=== PATIENT | male | born 1945 | race Caucasian/White ===

== ENCOUNTER 2023-07-18 08:37 | Emergency (ER) | payer MEDICARE, SELFPAY ==
[2023-07-18 08:39] VITALS: BP 134/105
[2023-07-18] MEDS: TYLENOL 1000 MG PO (11:09)
[2023-07-18 11:14] VITALS: BP 156/80
[2023-07-18] MEDS: CITROMA 300 ML PO (11:42)
--- NOTE | 2023-07-18 11:48 | ED.GENMED ---
History of Present Illness
General
Chief Complaint: Fall
Source: patient and spouse
Exam Limitations: none
Time Seen by Provider: 07/18/23 09:13
Travel History
Have you had any contact with someone who has COVID-19?: No
Do you have any symptoms of coronavirus? Fever > 100 degrees, chills, cough, shortness of breath, sore throat, loss of taste or smell, muscle aches, or headache?: No
History of Present Illness
History of Present Illness:
78-year-old male who fell of a tractor on Sunday. Patient reports he has had persistent back spasms on the right side. He sort of flung himself forward and landed on his right flank area. Denies shortness of breath but does admit the pain when
he takes a deep breath. No head injury. No neck pain. No midline back pain. On my exam pain is somewhat controlled mild but states that it 'spasms'. Patient and spouse also report constipation. In addition the patient has had poor sensation
below his knees that he attributes to his bilateral knee surgeries. He was seen and evaluated by orthopedics for this.
Past History
Past History
ED Past Medical History: GERD and Other (diverticulitis, Griffin's esophagus, diverticulitis, sciatica, prostate cancer)
ED Past Surgical History: None
Social History
Tobacco: Non-smoker
Living: with family
Phy Exam
Physical Exam
Physical Exam:
CONSTITUTIONAL Patient alert and oriented to person, place and time. Well-appearing. Vital signs reviewed.
HEAD atraumatic, normocephalic.
EYES eyelids normal to inspection, Pupils equally round and reactive to light, Extraocular muscles intact, Conjunctiva normal, Sclera normal.
NECK normal range of motion, Trachea midline, no jugular venous distention.
RESPIRATORY CHEST No respiratory distress noted, Chest expansion equal, Bilateral breath sounds clear.
ABDOMEN abdomen nontender, Bowel sounds normal. No distention.
BACK old midline lumbar scar. mild R posterior Rib tenderness, small healing bruise to mid R flank. no midline lumber TTP
UPPER EXTREMITY range of motion normal, Motor strength normal, no cyanosis, no edema.
LOWER EXTREMITY range of motion normal, Motor strength normal, no cyanosis, bilateral edema. Normal DP pulses bilaterally
NEURO Speech normal, No focal motor deficits, Chandler coma scale 15, Memory normal, Cranial Nerves intact to screening exam.
SKIN skin warm, dry, and normal in color.
PSYCHIATRIC patient oriented to person place and time, Normal affect.
Course
Orders/Labs/Results
Orders:
Orders
07/18/23 09:27
Acetaminophen [Tylenol] 1,000 mg PO NOW STA
07/18/23 09:28
Lumbar Spine, 2 or 3 View [CR Lumbar Spine 2 Or 3 Views] Urgent
Comment:
Reason For Exam: fall
Ribs, Right 3 View W/PA Chest [CR Ribs-right 3 Vw W/pa Chest*] Urgent
Comment:
Reason For Exam: fall
07/18/23 11:34
Magnesium Citrate [Citroma] 300 ml PO ONCE ONE
Vital Signs
Initial and Last Documented VS:
Initial Vital Signs
Temp Pulse Resp BP Pulse Ox
98.1 F 81 16 134/105 98
07/18/23 08:39 07/18/23 08:39 07/18/23 08:39 07/18/23 08:39 07/18/23 08:39
Last Documented Vital Signs
Temp Pulse Resp BP Pulse Ox
98.1 F 80 20 156/80 98
07/18/23 08:39 07/18/23 11:14 07/18/23 11:14 07/18/23 11:14 07/18/23 11:14
MDM/Problems Addressed
MDM/Problems Addressed:
Fall, rib contusion, back injury, muscle spasms
*Radiology
Radiology exam reviewed: preliminary read by ED provider (No obvious pneumothorax) and radiology read reviewed
*Pulse Oximetry
Patient hypoxic: no
*Critical Care Note
Total Time (30-74mins, 75-104mins- exclusive of procedures): Not Applicable
Data Reviewed
Source: patient and spouse
Prescriptions/Medications Considered But Not Given:
Consider narcotic pain medications the patient reports some constipation and does not want to pursue that at this time
Patient Management
Escalation/DeEscalation of care consider admission/obs:
Normal bilateral pulses. Does have a small amount of edema in the lower extremities. Right flank injury. No obvious hematuria to consider kidney injury. Will treat with muscle laxation and laxatives. Recommended Tylenol for pain. Okay for
discharge
ED Attending Note
-
Portions of this chart may have been created with voice recognition software.� Occasional wrong word or��sound alike� substitutions may have occurred due to the inherent limitations of voice recognition software.
Discharge Plan
Departure
Patient Disposition: Home (Routine Discharge)
Date of Disposition: 07/18/23
Time of Disposition: 11:58
Patient with high blood pressure during this ER visit?: Yes
Discharge Problem:
Rib injury
Instructions: Contusion (DC), Rib Fracture or Bruised Rib ED, BLOOD PRESSURE
Prescriptions:
No Action
omeprazole 20 MG tablet,delayed release (DR/EC)
20 mg PO DAILY
ascorbic acid (vitamin C) [Vitamin C] 1,000 MG tablet
1,000 mg PO DAILY
cyanocobalamin (vitamin B-12) 1,000 MCG tablet
1,000 mcg PO DAILY
folic acid 0.4 MG tablet
0.4 mg PO DAILY
multivitamin with folic acid [Tab-A-Mina] 1 TABLET tablet
1 tab PO DAILY
Calcium 1,500 MG Tab
1,500 mg PO DAILY
Vitamin D3: 50 MCG Tab
125 mcg PO DAILY
mupirocin 1 APPLIC ointment
1 applic topical BID Qty: 1 0RF
Patient Comments:
started 3 days ago- pt took a dose 05:00 am on 09/06/20
amlodipine 5 MG tablet
2.5 mg PO HS Qty: 60 0RF
Patient Comments:
pt has not taken Norvasc 'in about 4 days' per pt
Rx Instructions:
1/2 tab (2.5mg) at hs--hold systolic blood pressure <130
aspirin 325 MG tablet
325 mg PO DAILY 0RF
docusate sodium 100 MG capsule
100 mg PO BID 0RF
meloxicam 15 MG tablet
15 mg PO DAILY Qty: 30 1RF
Rx Instructions:
TAKE WITH FOOD
DO NOT TAKE WITHIN 2 HOURS OF ASPIRIN
acetaminophen-codeine 1 TABLET tablet
1 tab PO Q6HPRN PRN (Reason: moderate-severe pain) Qty: 30 0RF
Rx Instructions:
Dx TKA
ongoing therapy
sennosides [senna] 1 TABLET tablet
1 tab PO BID Qty: 1 0RF
Rx Instructions:
increase to 2 tabs bid if no BM
acetaminophen [Tylenol Extra Strength] 500 MG tablet
1,000 mg PO TID Qty: 1 0RF
diazepam 2 MG tablet
2 mg PO TIDPRN PRN (Reason: spasm) Qty: 20 0RF
Rx Instructions:
wean off
cephalexin 500 MG capsule
500 mg PO BID Qty: 14 0RF
Referrals:
Estela Lam MD [Family Provider] -
Activity Restrictions/Additional Instructions:
Please use incentive spirometer 10 times per hour while awake. Please rest. Return immediately for worsening pain, difficulty breathing, urinating blood or any other concerns. Please see your doctor in the next 3 to 5 days for follow-up and
reevaluation.
Interventions
Interventions:
*Risk Screen - Suicide Last Done: 07/18/23 11:15
*General Assessment Last Done: 07/18/23 11:15
*Neglect/Abuse Screening Last Done: 07/18/23 11:15
*ED COVID-19 Vaccine History Last Done: 07/18/23 08:39
ED-Musculoskeletal Assessment Last Done: 07/18/23 11:15
ED- Neurological Assessment Last Done: 07/18/23 11:15
ED-Skin Assessment Last Done: 07/18/23 11:15
== END 2023-07-18 12:10 | disposition home or self-care (01) ==
LOC: EMR 08:37
PROVIDERS: EMERGENCY PHYSICIAN Emergency Medicine; FAMILY PHYSICIAN Family Medicine
DX: S20.219A Contusion of unspecified front wall of thorax, initial encounter (principal); W17.89XA Other fall from one level to another, initial encounter; K59.00 Constipation, unspecified; R03.0 Elevated blood-pressure reading, without diagnosis of hypertension
CPT/HCPCS: 99283; 71101; 72100

== ENCOUNTER → 2024-01-01 13:22 | Outpatient (REF) | payer MEDICARE, SELFPAY ==
[2024-01-01 17:07] LABS: PSA, Total - Diagnostic < 0.06 ng/ml (0.0-4.0)
== END ==
LOC: REG 13:22
PROVIDERS: ATTENDING PHYSICIAN Specialist; FAMILY PHYSICIAN Family Medicine
DX: C61 Malignant neoplasm of prostate (principal)
CPT/HCPCS: 36415; 84153

== ENCOUNTER → 2024-04-21 11:24 | Outpatient (REF) | payer MEDICARE, SELFPAY ==
[2024-04-21 12:49] LABS: ALT (SGPT) 15 U/L (0-50); AST (SGOT) 26 U/L (17-59); Albumin 4.2 g/dl (3.5-5.0); Alkaline Phosphatase 69 U/L (38-126); Blood Urea Nitrogen 18 mg/dl (9-20); Calcium 9.6 mg/dl (8.4-10.2); Carbon Dioxide 30 mmol/L (22-30); Chloride 100 mmol/L (98-107); Glucose 100 mg/dl (70-99); HDL Cholesterol 70 mg/dl; LDL Cholesterol, Calculated 138 mg/dl; Sodium 139 mmol/L (135-145); Total Bilirubin 1.3 mg/dl (0.2-1.3); Total Cholesterol 230 mg/dl (50-199); Total Protein 7.6 g/dl (6.3-8.2); Triglyceride 110 mg/dl (10-149); Very Low Density Lipoprotein 22 mg/dl (0-30); eGFR > 60.00
[2024-04-21 13:27] LABS: TSH Reflex To Free T4 1.62 uIU/ml (0.47-4.68)
== END ==
LOC: REG 11:24
PROVIDERS: ATTENDING PHYSICIAN Physician Assistant
DX: Z13.220 Encounter for screening for lipoid disorders (principal); Z13.228 Encounter for screening for other metabolic disorders; Z13.29 Encounter for screening for other suspected endocrine disorder
CPT/HCPCS: 36415; 80053; 80061; 84443

== ENCOUNTER → 2024-08-15 06:46 | Outpatient (REF) | payer MEDICARE, SELFPAY | LOC: PAVMRI 06:46 | PROVIDERS: ATTENDING PHYSICIAN Physician Assistant; FAMILY PHYSICIAN Family Medicine; REFERRING PHYSICIAN Physical Medicine & Rehabilitation | DX: M54.16 Radiculopathy, lumbar region (principal) | CPT/HCPCS: 72148 ==

== ENCOUNTER 2024-12-19 10:09 | Emergency (ER) | payer MEDICARE, SELFPAY ==
[2024-12-19 10:13] VITALS: BP 202/126
[2024-12-19 10:56] VITALS: BMI 24.5
[2024-12-19 11:03] VITALS: BP 175/99
--- NOTE | 2024-12-19 11:30 | ED.GENMED ---
History of Present Illness
<Tj Rehman MD, Resident - Last Filed: 12/19/24 13:01>
General
Chief Complaint: Blood Pressure Problem
Source: patient
Exam Limitations: none
Time Seen by Provider: 12/19/24 11:00
Nursing documentation reviewed up to this point in time: agreed with
History of Present Illness
History of Present Illness:
This is a 79-year-old male with history of hypertension or heart disease presenting from [employer] office with concerns of elevated blood pressure. He reports that he went to see the eye doctor for routine exams and had his eyes dilated and
they were checking just the usual vitals when they saw that his blood pressure was very elevated and advised him to go to the emergency department. He denies any chest pain, denies trouble breathing, denies headache, denies blurred vision, denies
dizziness or headache.
Past History
<Tj Rehman MD, Resident - Last Filed: 12/19/24 13:01>
Past History
ED Past Medical History: Cancer (prostate), GERD and Other (diverticulitis, Griffin's esophagus, diverticulitis, sciatica, prostate cancer)
ED Past Surgical History: Orthopedic (Laminectomy, left total hip replacement, left total knee replacement, Carpal tunnel release)
Patient has exhibited threatening behavior?: No
Social History
Tobacco: Non-smoker
Alcohol: None
Drug: None
Personal:
Living: with family
Family History
Family History: Other (Noncontributory)
Review of Systems
<Tj Rehman MD, Resident - Last Filed: 12/19/24 13:01>
Review of Systems
Allergies reviewed?: Yes
All Other Systems: ROS reviewed and negative except as documented in HPI and ROS
Constitutional: Denies fever or chills
EENT: Denies sore throat
Respiratory: Denies cough
Cardiac: Denies chest pain
ABD/GI: Denies abdominal pain
Musculoskeletal: Denies joint pain
Skin: Denies itching
Neurological: Denies dizzy or headache
Phy Exam
<Tj Rehman MD, Resident - Last Filed: 12/19/24 13:01>
General Physical Exam
General Presentation: no apparent distress
General age: appears stated age
General Skin: warm
General Habitus: normal
General Mental: alert
General Hydration: appears well hydrated
Eye Exam
Eye Exam: EOMI
Cardiovascular Exam
Cardiovascular Exam: regular rate/rhythm and no murmur
Pulmonary Exam
Pulmonary Exam: lungs clear, no respiratory distress, no crackles and no cough
Neurological Exam
Neurological Exam: alert and oriented x3
Course
<Tj Rehman MD, Resident - Last Filed: 12/19/24 13:01>
Orders/Labs/Results
Orders:
Orders
12/19/24 11:04
Electrocardiogram (*1) Urgent
Reason for Study: Tachycardia
EKG- Treatment ONCE
12/19/24 11:53
Complete Blood Count/No Diff Urgent
Comprehensive Metabolic Panel Urgent
Troponin I Urgent
Labetalol HCl [Trandate] 10 mg IV NOW STA
Abnormal Lab Results
12/19/24
11:53
WBC 4.7 L 10^3/uL
(4.8-10.8)
RBC 4.23 L 10^6/uL
(4.70-6.10)
MCV 99.8 H fL
(80.0-94.0)
MCH 34.0 H pg
(27.0-31.0)
MPV 10.8 H fL
(7.4-10.4)
Total Bilirubin 1.5 H mg/dl
(0.2-1.3)
12/19/24 11:53
12/19/24 11:53
Vital Signs
Initial and Last Documented VS:
Initial Vital Signs
Pulse Resp BP Pulse Ox
95 16 202/126 99
12/19/24 10:13 12/19/24 10:13 12/19/24 10:13 12/19/24 10:13
Last Documented Vital Signs
Temp Pulse Resp BP Pulse Ox
36.6 C 93 14 160/103 97
12/19/24 10:56 12/19/24 12:49 12/19/24 12:49 12/19/24 12:49 12/19/24 12:49
<Baldev Sandoval MD - Last Filed: 12/19/24 13:13>
Orders/Labs/Results
Orders:
Orders
12/19/24 11:04
Electrocardiogram (*1) Urgent
Reason for Study: Tachycardia
EKG- Treatment ONCE
12/19/24 11:53
Complete Blood Count/No Diff Urgent
Comprehensive Metabolic Panel Urgent
Troponin I Urgent
Labetalol HCl [Trandate] 10 mg IV NOW STA
Abnormal Lab Results
12/19/24
11:53
WBC 4.7 L 10^3/uL
(4.8-10.8)
RBC 4.23 L 10^6/uL
(4.70-6.10)
MCV 99.8 H fL
(80.0-94.0)
MCH 34.0 H pg
(27.0-31.0)
MPV 10.8 H fL
(7.4-10.4)
Total Bilirubin 1.5 H mg/dl
(0.2-1.3)
12/19/24 11:53
12/19/24 11:53
Vital Signs
Initial and Last Documented VS:
Initial Vital Signs
Pulse Resp BP Pulse Ox
95 16 202/126 99
12/19/24 10:13 12/19/24 10:13 12/19/24 10:13 12/19/24 10:13
Last Documented Vital Signs
Temp Pulse Resp BP Pulse Ox
36.6 C 93 14 160/103 97
12/19/24 10:56 12/19/24 12:49 12/19/24 12:49 12/19/24 12:49 12/19/24 12:49
<Tj Rehman MD, Resident - Last Filed: 12/19/24 13:01>
MDM/Problems Addressed
Differential Diagnosis Includes:
Hypertensive urgency vs hypertensive emergency vs ACS
MDM/Problems Addressed:
Check CBC, CMP, troponin
EKG with sinus rhythm with first-degree AV block, left axis deviation, right bundle branch block
Will give 1 dose of IV labetalol 10 mg: Patient's blood pressure was 171/108 even before giving the labetalol
Remains asymptomatic. Current systolic blood pressure around 140s with diastolic of 90s.
CBC unremarkable, CMP with slight elevation of total bilirubin to 1.5, serum troponin unremarkable
Shared decision was made with the patient for discharge home on lisinopril 10 mg. Advised to have BMP in 2 weeks and follow-up with family doctor for additional recommendation. Return precautions reviewed.
<Tj Rehman MD, Resident - Last Filed: 12/19/24 13:01>
*Pulse Oximetry
SaO2: 96
Oxygen Mode of Delivery: Room air
Patient hypoxic: no
*Critical Care Note
Total Time (30-74mins, 75-104mins- exclusive of procedures): Not Applicable
ED Attending Note
<Tj Rehman MD, Resident - Last Filed: 12/19/24 13:01>
-
Portions of this chart may have been created with voice recognition software.� Occasional wrong word or��sound alike� substitutions may have occurred due to the inherent limitations of voice recognition software.
<Baldev Sandoval MD - Last Filed: 12/19/24 13:13>
ED Attending Note
Patient seen and examined by attending physician: Yes
I performed a history and physical exam of patient and discussed management with resident, I reviewed resident's note and agree with documented findings and plan of care.: Yes
ED Attending Note:
I have seen and evaluated the patient with a [id number] encounter. I have spoken to the resident and involved in the medical history, the physical exam, medical decision making.
Evaluation and management service: agree unless noted differently below.
Results interpretation: agree unless noted differently below.
Focused HPI: 79-year-old male with history as noted presents to the ER for evaluation of hypertension. Patient was at his ophthalmology appointment for routine appointment and noted to be hypertensive in the office. Sent to the ER for assessment.
He denies any symptoms at all including denying specifically chest pain, shortness of breath, headache, vision changes or any other symptoms. He says that he has been told his blood pressure is mildly high at office appointments in the past but
never to this degree�today was over 200. He is not on any medication for his blood pressure. His primary doctor is Dr. Lam.
Physical exam: Awake alert in no distress. No cardiac rubs or murmurs. Lungs clear to auscultation bilaterally. No edema in the legs and equal pulses throughout. His pupils are dilated after eye exam earlier; funduscopic exam here no signs of
papilledema.
Medical Decision Makin-year-old male presents with asymptomatic hypertension. He was given labetalol with improvement. Screening labs unremarkable. Stable for discharge on lisinopril. Message sent to patient's primary care physician to
discuss and they will follow-up with him in the office.
Discharge Plan
Departure
Patient Disposition: Home (Routine Discharge)
Date of Disposition: 12/19/24
Time of Disposition: 12:53
Patient with high blood pressure during this ER visit?: Yes
Condition: Fair
Discharge Problem:
Hypertension
Instructions: High Blood Pressure (DC)
Prescriptions:
New
lisinopril 10 mg tablet
10 mg PO DAILY Qty: 30 0RF
No Action
omeprazole 20 MG tablet,delayed release (DR/EC)
20 mg PO DAILY
ascorbic acid (vitamin C) [Vitamin C] 1,000 MG tablet
1,000 mg PO DAILY
cyanocobalamin (vitamin B-12) 1,000 MCG tablet
1,000 mcg PO DAILY
folic acid 0.4 MG tablet
0.4 mg PO DAILY
multivitamin with folic acid [Tab-A-Mina] 1 TABLET tablet
1 tab PO DAILY
Calcium 1,500 MG Tab
1,500 mg PO DAILY
Vitamin D3: 50 MCG Tab
125 mcg PO DAILY
mupirocin 1 APPLIC ointment
1 applic topical BID Qty: 1 0RF
Patient Comments:
started 3 days ago- pt took a dose 05:00 am on 09/06/20
amlodipine 5 MG tablet
2.5 mg PO HS Qty: 60 0RF
Patient Comments:
pt has not taken Norvasc 'in about 4 days' per pt
Rx Instructions:
1/2 tab (2.5mg) at hs--hold systolic blood pressure <130
aspirin 325 MG tablet
325 mg PO DAILY 0RF
docusate sodium 100 MG capsule
100 mg PO BID 0RF
meloxicam 15 MG tablet
15 mg PO DAILY Qty: 30 1RF
Rx Instructions:
TAKE WITH FOOD
DO NOT TAKE WITHIN 2 HOURS OF ASPIRIN
acetaminophen-codeine 1 TABLET tablet
1 tab PO Q6HPRN PRN (Reason: moderate-severe pain) Qty: 30 0RF
Rx Instructions:
Dx TKA
ongoing therapy
sennosides [senna] 1 TABLET tablet
1 tab PO BID Qty: 1 0RF
Rx Instructions:
increase to 2 tabs bid if no BM
acetaminophen [Tylenol Extra Strength] 500 MG tablet
1,000 mg PO TID Qty: 1 0RF
diazepam 2 MG tablet
2 mg PO TIDPRN PRN (Reason: spasm) Qty: 20 0RF
Rx Instructions:
wean off
cephalexin 500 MG capsule
500 mg PO BID Qty: 14 0RF
diazepam 2 mg tablet
2 mg PO TID PRN (Reason: muscle spasm) Qty: 20 0RF
Rx Instructions:
take 2-4mg TID as needed
Referrals:
Estela Lam MD [Family Provider, Family Practice] - Follow up in 1 week
Activity Restrictions/Additional Instructions:
You were seen at the [facility] emergency department with concerns of elevated blood pressure. While you were in the emergency department we performed blood work including complete blood count, complete metabolic panel, serum troponin
everything came back unremarkable. EKG showed sinus rhythm with right bundle branch block. Your blood pressure initially was in 200s however it did drop to 170s on its own within 10 minutes of your arrival. You received 1 dose of IV labetalol 10
mg. Your blood pressure was around 140s/90s at the time of discharge. Your vitals remained stable. A prescription of lisinopril 10 mg was sent to your pharmacy to be taken daily. Please resume have a blood work in 2 weeks to check for kidney
functions and electrolytes since you are starting a new medication. If you develop any new symptoms or worsening of current symptoms or any worrisome concerns please return to the emergency department. Please follow-up with your family doctor in 1
to 2 weeks. A text was sent to your family doctor with updates.
Interventions
Interventions:
*Risk Screen - Suicide Last Done: 12/19/24 10:14
*General Assessment Last Done: 12/19/24 10:56
*Neglect/Abuse Screening Last Done: 12/19/24 10:14
*ED COVID-19 Vaccine History Last Done: 12/19/24 11:01
ED- Cardiac Assessment Last Done: 12/19/24 11:01
ED- Neurological Assessment Last Done: 12/19/24 11:01
ED- Pulmonary Assessment Last Done: 12/19/24 11:01
Discharge Date and Time
Print Language: SYRIAN
[2024-12-19 12:00] VITALS: BP 171/108
[2024-12-19 12:04] LABS: Hematocrit 42.2 % (39.0-52.0); Hemoglobin 14.4 g/dL (13.0-18.0); Mean Corp Hgb Conc. 34.1 g/dL (33.0-37.0); Mean Corpuscular Volume 99.8 fL (80.0-94.0); Platelet Count 149 10^3/uL (130-400); Red Cell Dist. Width 12.9 % (11.5-14.5)
[2024-12-19] MEDS: TRANDATE 10 MG IV (12:17)
[2024-12-19 12:19] LABS: ALT (SGPT) 14 U/L (0-50); AST (SGOT) 23 U/L (17-59); Albumin 4.5 g/dl (3.5-5.0); Alkaline Phosphatase 68 U/L (38-126); Blood Urea Nitrogen 19 mg/dl (9-20); Calcium 10.0 mg/dl (8.4-10.2); Carbon Dioxide 29 mmol/L (22-30); Chloride 102 mmol/L (98-107); Estimated Creatinine Clearance 72 ml/min; Glucose 95 mg/dl (70-99); Potassium 4.4 mmol/L (3.5-5.1); Sodium 137 mmol/L (135-145); Total Protein 8.1 g/dl (6.3-8.2); eGFR > 60.00
[2024-12-19 12:21] VITALS: BP 152/106
[2024-12-19 12:30] VITALS: BP 140/110
[2024-12-19 12:31] LABS: Troponin I < 0.012 ng/ml
[2024-12-19 12:49] VITALS: BP 160/103
== END 2024-12-19 13:18 | disposition home or self-care (01) ==
LOC: EMR 10:09
PROVIDERS: EMERGENCY PHYSICIAN Emergency Medicine; FAMILY PHYSICIAN Family Medicine
DX: I10 Essential (primary) hypertension (principal); I51.9 Heart disease, unspecified; K21.9 Gastro-esophageal reflux disease without esophagitis; Z87.19 Personal history of other diseases of the digestive system
CPT/HCPCS: 99283; 96374; 80053; 84484; 85027; 93005

== ENCOUNTER → 2024-12-23 11:10 | Outpatient (REF) | payer MEDICARE, SELFPAY ==
[2024-12-23 13:20] LABS: PSA, Total - Diagnostic < 0.06 ng/ml (0.0-4.0)
== END ==
LOC: REG 11:10
PROVIDERS: ATTENDING PHYSICIAN Specialist; FAMILY PHYSICIAN Family Medicine
DX: C61 Malignant neoplasm of prostate (principal)
CPT/HCPCS: 36415; 84153